=== PATIENT | male | born 1985 | race Caucasian/White ===

== ENCOUNTER 2022-07-08 10:16 | Emergency (ER) | payer BC ==
--- NOTE | 2022-07-08 11:07 | RAD REPORT ---
EXAM DESCRIPTION: CT - CTHCSPWOC - 07/08/2022 10:35 am CLINICAL HISTORY: syncope COMPARISON: No comparisons TECHNIQUE: Axial 5 mm thick images of the head were obtained. Axial 2 mm thick images of the cervic al spine were obtained with sagittal and coronal reconstruction images generated and reviewed. All CT scans are performed using dose optimization technique as appropriate and may include automated exposure control or mA/KV adjustment according to patient size. FINDINGS: No intracranial hemorrhage, mass, edema or acute intracranial finding. No suspicion for ac socorro infarction. No extra-axial fluid collections. Mastoid air cells are clear. Mild mucosal thickenin g with a trace air-fluid level seen in the left maxillary sinus. No globe or orbit abnormality seen. Cervical bodies are normal in height and normal in AP alignment. There is right lateral tilt of the c ervical spine the is probably positioning artifact. Muscle spasm or scoliotic curvature can create a similar appearance. This is not of acute clinical significance. No disk space narrowing. No fracture or acute bony abnormality. Central canal detail is inherently limited. No paraspinal mass or hematoma. IMPRESSION: Negative CT head examination for acute or significant finding. Negative CT cervical spine examination for acute or significant finding.
[2022-07-08] MEDS ORDERED: NA CHLORIDE 0.9% 1,000 ML ONE ×2 (11:15→13:01)
[2022-07-08] MEDS ORDERED: DERMABOND SKIN ADHESIVE TOP ONE (11:15)
[2022-07-08] MEDS ORDERED: TDAP (DIPHTH,PERTUSS(ACELL),TET VAC) 0.5 ML VIAL IMVAC ONE (11:15)
[2022-07-08] MEDS ORDERED: ACETAMINOPHEN 500 MG TAB ONE (11:33)
[2022-07-08 11:46] LABS: Potassium 4.1 mmol/L (3.5-5.1)
[2022-07-08 11:49] LABS: Absolute Lymphocytes (CBC) 0.9 K/uL (0.7-4.9); Lymphocytes % 11.4 % (15.3-44.8); MCV 88.3 fL (80-100); MPV 9.5 fL (7.6-11.3); RBC Red Blood Cell Count 5.33 M/uL (4.33-5.43)
--- NOTE | 2022-07-08 14:15 | EDPHYS ---
Physician Documentation [facility] Name: Guerrero Rosado Age: 37 yrs Sex: Male : 1985 Arrival Date: 07/08/2022 Time: 10:18 Bed 20 Private MD: ED Physician Hebert Bansal HPI: 07/08 11:13 This 37 yrs old Male presents to ER via Wheelchair with complaints of Covid+, Passed snw Out Prior To Arrival, Head Injury With LOC-Adult, Shortness Of Breath. 11:13 The patient has experienced syncope, collapsed, lost consciousness. Onset: The snw symptoms/episode began/occurred suddenly, this morning. Duration: The patient has had multiple episodes, that last an unknown period of time. Context: occurred at home, occurred while the patient was in the bathtub. Associated injury: Head/face: left eye, laceration. Associated signs and symptoms: Pertinent positives: lightheadedness, weakness. Current symptoms: listlessness. The patient has not experienced similar symptoms in the past. dx with CoVid last week. taking Nyquil. Historical: - Allergies: 10:47 tramadol; jh5 - PSHx: 10:47 RT ACL Repair; 5 - Immunization history:: Adult Immunizations up to date. - Social history:: Smoking status: Patient reports the use of cigarette tobacco products, smokes one-half pack cigarettes per day. ROS: 11:11 Eyes: Negative for injury, pain, redness, and discharge, ENT: Negative for injury, snw pain, and discharge, Neck: Negative for injury, pain, and swelling, Cardiovascular: Negative for chest pain, palpitations, and edema. 11:11 Abdomen/GI: Negative for abdominal pain, nausea, vomiting, diarrhea, and constipation, Back: Negative for injury and pain, : Negative for injury, bleeding, discharge, and swelling, MS/Extremity: Negative for injury and deformity, Skin: Negative for injury, rash, and discoloration. 11:11 Psych: Negative for depression, anxiety, suicide ideation, homicidal ideation, and hallucinations. 11:11 Constitutional: Positive for body aches, fatigue, malaise, poor PO intake. 11:11 Respiratory: Positive for shortness of breath, at rest. 11:11 Neuro: Positive for loss of consciousness, syncope. Exam: 11:09 Eyes: Pupils equal round and reactive to light, extra-ocular motions intact. Lids and snw lashes normal. Conjunctiva and sclera are non-icteric and not injected. Cornea within normal limits. Periorbital areas with no swelling, redness, or edema. ENT: Nares patent. No nasal discharge, no septal abnormalities noted. Tympanic membranes are normal and external auditory canals are clear. Oropharynx with no redness, swelling, or masses, exudates, or evidence of obstruction, uvula midline. Mucous membranes moist. Neck: Trachea midline, no thyromegaly or masses palpated, and no cervical lymphadenopathy. Supple, full range of motion without nuchal rigidity, or vertebral point tenderness. No Meningismus. Chest/axilla: Normal chest wall appearance and motion. Nontender with no deformity. No lesions are appreciated. 11:09 Abdomen/GI: Soft, non-tender, with normal bowel sounds. No distension or tympany. No guarding or rebound. No evidence of tenderness throughout. Back: No spinal tenderness. No costovertebral tenderness. Full range of motion. Skin: Warm, dry with normal turgor. Normal color with no rashes, no lesions, and no evidence of cellulitis. MS/ Extremity: Pulses equal, no cyanosis. Neurovascular intact. Full, normal range of motion. Neuro: Awake and alert, GCS 15, oriented to person, place, time, and situation. Cranial nerves II-XII grossly intact. Motor strength 5/5 in all extremities. Sensory grossly intact. Cerebellar exam normal. Normal gait. Psych: Awake, alert, with orientation to person, place and time. Behavior, mood, and affect are within normal limits. 11:09 Constitutional: The patient appears alert, awake, listless. 11:09 Head/face: Noted is contusion, that is deep, of the left side of forehead, a laceration(s), that is linear, 1.5 cm(s), of the left eye. 11:09 Cardiovascular: Rate: bradycardic, Heart sounds: normal. 11:09 Respiratory: the patient does not display signs of respiratory distress, Respirations: shallow respirations, tachypnea, Breath sounds: are clear throughout. Vital Signs: 10:44 BP 102 / 67; Pulse 50; Resp 18; Temp 98.4; Pulse Ox 100% ; Weight 117.93 kg; Height 6 5 ft. 0 in. (182.88 cm); Pain 0/10; 11:52 BP 116 / 62; Pulse 59; Resp 15; Pulse Ox 100% on R/A; vc1 12:47 BP 127 / 66; Pulse 51; Resp 16; Pulse Ox 99% on R/A; hb 14:09 BP 124 / 77; Pulse 50; Resp 16; Pulse Ox 100% on R/A; hb 10:44 Body Mass Index 35.26 (117.93 kg, 182.88 cm) 5 Laceration: 11:48 Wound Repair of 2cm ( 0.8in ) subcutaneous laceration to left side of forehead. Linear snw shaped.. Distal neuro/vascular/tendon intact. Anesthesia: Local anesthetic administered with 0 mls of 1% lidocaine. Wound prep: Moderate cleansing with hibiclenz by nurse by me. Skin closed with 1-0 Prolene using Dermabond. Dressed with none. Patient tolerated well. MDM: 10:27 Patient medically screened. snw 14:16 Data reviewed: vital signs, nurses notes. Data interpreted: Pulse oximetry: on room air snw is 100 %. Interpretation: normal. Counseling: I had a detailed discussion with the patient and/or guardian regarding: the historical points, exam findings, and any diagnostic results supporting the discharge/admit diagnosis, lab results, radiology results, the need for outpatient follow up, to return to the emergency department if symptoms worsen or persist or if there are any questions or concerns that arise at home. Special discussion: Based on the patient's history, exam and DX evaluation, there is no indication for emergent intervention or inpatient TX. It is understood by the patient/guardian that if the SXs persist or worsen they need to return immediately for re-evaluation. Based on the history and exam findings, there is no indication for further emergent testing or inpatient evaluation. I discussed with the patient/guardian the need to see the primary care provider for further evaluation of the symptoms. 07/08 11:09 Order name: CBC with Diff; Complete Time: 11:53 snw 07/08 11:09 Order name: Chem 7; Complete Time: 11:48 snw 07/08 10:22 Order name: CT Head C Spine; Complete Time: 11:15 snw 07/08 11:09 Order name: Wound Care; Complete Time: 11:34 snw 07/08 11:09 Order name: Dermabond; Complete Time: 13:03 snw 07/08 12:59 Order name: PO challenge; Complete Time: 13:02 snw Administered Medications: 11:20 Drug: NS 0.9% 1000 ml Route: IV; Rate: 1 bolus; Site: right antecubital; vc1 12:15 Follow up: Response: No adverse reaction; IV Status: Completed infusion; IV Intake: hb 1000ml 11:33 Drug: Tetanus-Diphtheria Toxoid Adult 0.5 ml {Improvement Analyst: [employer] ([employer]). Exp: vc1 04/13/2023. Lot #: [id number]. } Route: IM; Site: right deltoid; 12:00 Follow up: Response: No adverse reaction hb 11:34 Drug: Tylenol 1000 mg Route: PO; vc1 13:02 Drug: NS 0.9% 1000 ml Route: IV; Rate: 1 bolus; Site: right antecubital; hb Disposition: 13:45 Co-signature as Attending Physician, Hebert HODGE was immediately available on-site ms3 in the Emergency Department for consultation in the care of the patient. Disposition Summary: 07/08/22 14:15 Discharge Ordered Location: Home snw Condition: Stable snw Diagnosis - Orthostatic hypotension snw - Laceration without foreign body of unspecified part of head snw - Syncope Near snw - SARS-associated coronavirus as the cause of diseases classified elsewhere snw Followup: snw - With: Emergency Department - When: As needed - Reason: Worsening of condition Followup: snw - With: Private Physician - When: 1 week - Reason: Recheck today's complaints, Continuance of care, Re-evaluation by your physician Discharge Instructions: - Discharge Summary Sheet snw - Tissue Adhesive Wound Care snw - Orthostatic Hypotension snw - Syncope snw - Aspirin and Your Heart snw - Rehydration, Adult snw - COVID-19 snw Forms: - Medication Reconciliation Form snw - Thank You Letter snw - Antibiotic Education snw - Prescription Opioid Use snw - Work release form snw Signatures: Dispatcher [employer] Luzmaria Mathews, DIVORCE LAWYER-C DIVORCE LAWYER-Csnw Marivel Barth RN RN hb Sims, Marcus, DO DO ms3 Norma Mesa, RN RN jh5 Sophia Castillo, RN RN vc1
--- NOTE | 2022-07-08 14:15 | ER ---
Nurse's Notes [facility] Name: Guerrero Rosado Age: 37 yrs Sex: Male : 1985 Arrival Date: 07/08/2022 Time: 10:18 Bed 20 Private MD: Diagnosis: Orthostatic hypotension;Laceration without foreign body of unspecified part of head;Syncope Near;SARS-associated coronavirus as the cause of diseases classified elsewhere Presentation: 07/08 10:44 Chief complaint: Patient states: tested positive COVID last Friday; woke up this [facility] morning and got in shower, sat down in shower cause i was feeling terrible. stepped out of shower and felt everything spinning and then everything went black. woke up and noticed my face was bleeding. Got into the bath tub and fell back asleep. I woke up after and was able to call my dad. Coronavirus screen: Vaccine status: Patient reports receiving the 2nd dose of the covid vaccine. Client denies travel out of the [place] in the last 14 days. Ebola Screen: Patient negative for fever greater than or equal to 101.5 degrees Fahrenheit, and additional compatible Ebola Virus Disease symptoms Patient denies exposure to infectious person. Patient denies travel to an Ebola-affected area in the 21 days before illness onset. Initial Sepsis Screen: Does the patient meet any 2 criteria? No. Patient's initial sepsis screen is negative. Does the patient have a suspected source of infection? No. Patient's initial sepsis screen is negative. Risk Assessment: Do you want to hurt yourself or someone else? Patient reports no desire to harm self or others. Onset of symptoms was July 08, 2022. 10:44 Method Of Arrival: Wheelchair [facility] 10:44 Acuity: DEMETRIUS 3 jh5 Triage Assessment: 10:47 General: Appears uncomfortable, Behavior is calm, cooperative, appropriate for age. jh5 Pain: Complains of pain in back. Historical: - Allergies: 10:47 tramadol; jh5 - PSHx: 10:47 RT ACL Repair; 5 - Immunization history:: Adult Immunizations up to date. - Social history:: Smoking status: Patient reports the use of cigarette tobacco products, smokes one-half pack cigarettes per day. Screenin:50 [facility] ED Fall Risk Assessment (Adult) History of falling in the last 3 months, vc1 including since admission Yes- physiologic fall (2 pts) Confusion or Disorientation No (0 pts) Intoxicated or Sedated No (0 pts) Impaired Gait No (0 pts) Mobility Assist Device Used No (0 pt) Altered Elimination No (0 pt) Score/Fall Risk Level 0 - 2 = Low Risk Oriented to surroundings, Maintained a safe environment, Educated pt \T\ family on fall prevention, incl call for assistance when getting out of bed, Assessed \T\ reinforced patient's understanding of fall precautions, Hourly rounding (assess needs \T\ fall precautionary measures) done. Abuse screen: Denies threats or abuse. Denies injuries from another. Nutritional screening: No deficits noted. Tuberculosis screening: No symptoms or risk factors identified. Fall Risk Fall in past 12 months (25 points). No secondary diagnosis (0 pts). IV access (20 points). Ambulatory Aid- None/Bed Rest/Nurse Assist (0 pts). Gait- Normal/Bed Rest/Wheelchair (0 pts) Mental Status- Oriented to own ability (0 pts). Total Jenkins Fall Scale indicates Low Risk Score (25-44 pts). Fall prevention measures have been instituted. Frequent Obs/Assesments occuring Family Present and informed to notify staff if they need to leave bedside As available Patient and Family Educated on Fall Prevention Program and strategies. Assessment: 10:37 Reassessment: attempted to call back for triage at this time; pt father informed the jh5 marketing underwriter pt is in radiology. 10:52 General: Appears in no apparent distress. uncomfortable, Behavior is calm, cooperative. vc1 Pain:. Neuro: Level of Consciousness is awake, alert, obeys commands, Oriented to person, place, time, situation. Cardiovascular: Patient's skin is warm and dry. Respiratory: Respiratory effort is even, unlabored, Respiratory pattern is regular, symmetrical. GI: No signs and/or symptoms were reported involving the gastrointestinal system. : No signs and/or symptoms were reported regarding the genitourinary system. EENT: No signs and/or symptoms were reported regarding the EENT system. Derm: Skin is pink, warm \T\ dry. Musculoskeletal: Reports low back pain. 12:48 Reassessment: Patient appears in no apparent distress at this time. Patient and/or hb family updated on plan of care and expected duration. Pain level reassessed. Patient is alert, oriented x 3, equal unlabored respirations, skin warm/dry/pink. 14:01 Reassessment: Patient appears in no apparent distress at this time. Patient and/or hb family updated on plan of care and expected duration. Pain level reassessed. Patient is alert, oriented x 3, equal unlabored respirations, skin warm/dry/pink. Vital Signs: 10:44 BP 102 / 67; Pulse 50; Resp 18; Temp 98.4; Pulse Ox 100% ; Weight 117.93 kg; Height 6 [facility] ft. 0 in. (182.88 cm); Pain 0/10; 11:52 BP 116 / 62; Pulse 59; Resp 15; Pulse Ox 100% on R/A; vc1 12:47 BP 127 / 66; Pulse 51; Resp 16; Pulse Ox 99% on R/A; hb 14:09 BP 124 / 77; Pulse 50; Resp 16; Pulse Ox 100% on R/A; hb 10:44 Body Mass Index 35.26 (117.93 kg, 182.88 cm) [facility] ED Course: 10:18 Patient arrived in ED. mr 10:21 Luzmaria Berrios, HOST/HOSTESS-C [facility] snw 10:21 Hebert Bansal DO is Attending Physician. snw 10:36 CT Head C Spine In Process Unspecified. EDMS 10:47 Triage completed. jh5 10:47 Arm band placed on right wrist. 5 10:49 Sophia Castillo, RN is Primary Nurse. vc1 10:50 Patient has correct armband on for positive identification. vc1 11:24 Inserted saline lock: 20 gauge in right antecubital area, using aseptic technique. vc1 Blood collected. 11:34 Chem 7 Sent. vc1 11:34 CBC with Diff Sent. vc1 14:25 No provider procedures requiring assistance completed. IV discontinued, intact, hb bleeding controlled, No redness/swelling at site. Administered Medications: 11:20 Drug: NS 0.9% 1000 ml Route: IV; Rate: 1 bolus; Site: right antecubital; vc1 12:15 Follow up: Response: No adverse reaction; IV Status: Completed infusion; IV Intake: hb 1000ml 11:33 Drug: Tetanus-Diphtheria Toxoid Adult 0.5 ml {Head Start Coordinator: [place] [employer]). Exp: vc1 04/13/2023. Lot #: [id number]. } Route: IM; Site: right deltoid; 12:00 Follow up: Response: No adverse reaction hb 11:34 Drug: Tylenol 1000 mg Route: PO; vc1 13:02 Drug: NS 0.9% 1000 ml Route: IV; Rate: 1 bolus; Site: right antecubital; hb Medication: 10:52 VIS not applicable for this client. vc1 Intake: 12:15 IV: 1000ml; Total: 1000ml. hb Outcome: 14:15 Discharge ordered by . snw 14:25 Discharged to home ambulatory, with family. hb 14:25 Condition: stable 14:25 Discharge instructions given to patient, family, Instructed on discharge instructions, follow up and referral plans. medication usage, Demonstrated understanding of instructions, follow-up care, medications. 14:25 Patient left the ED. hb Signatures: Dispatcher [employer] EDMS Luzmaria Berrios, [place] HOST/HOSTESS-Jo Ann Meyer Heather, RN RN Norma Mesa RN RN jh5 Sophia Castillo RN RN vc1 Corrections: (The following items were deleted from the chart) 10:53 10:52 General: See triage assessment. vc1 vc1
[2022-07-08 14:35] VITALS: TEMP 98.4
[2022-07-08 14:51] VITALS: BP 124/77; O2SAT 100
== END 2022-07-08 14:25 | disposition home or self-care (01) ==
LOC: ER 10:16
PROC: 0JQ10ZZ Repair Face Subcutaneous Tissue and Fascia, Open Approach (ICD-10-PCS; principal; 2022-07-08)
DX: S01.81XA Laceration without foreign body of other part of head, initial encounter (principal); U07.1 COVID-19; I95.1 Orthostatic hypotension; F17.210 Nicotine dependence, cigarettes, uncomplicated; Z88.5 Allergy status to narcotic agent; Z23 Encounter for immunization
CPT/HCPCS: 85025; 80048; 36415; 70450; 72125; 12011; J7030 ×2; 90471; 96360; 99284